=== PATIENT | female | born 1935 | race Caucasian/White ===

== ENCOUNTER 2016-09-01 12:25 | Inpatient (IN) | payer OTHER ==
--- NOTE | 2016-09-01 13:12 | ED EKG INTERP ---
EKG Interpretation - EKG Time of EKG reading by physician:: 12:48 EKG Read and Signed by:: Gerard Stone EKG Interpretation (*Must complete 3 of following elements*): Abnormal Rate: 132 Rhythm: Wide QRS tachycardia QRS: LVH (with QRS widening and repoarization abnormality) <Alicia Whaley - Last Filed: 09/01/16 13:10> - EKG Time of EKG reading by physician:: 13:15 EKG Read and Signed by:: Lary Garcia EKG Interpretation (*Must complete 3 of following elements*): Abnormal Rate: 132 QRS: LVH, other (Wide Complex Takchycardia) Prior EKG Comparison: unchanged from prior, changes noted <Lary Garcia - Last Filed: 09/01/16 15:09> Attestation - Scribe Verification/Attestation Scribe:: Alicia Whaley Acting as Scribe for:: Gerard Stone Scribe documention review:: This chart was documented by a scribe and accurately reflects the service the provider performed and the decisions made by the provider. <Alicia Whaley - Last Filed: 09/01/16 13:10> Physician Attestation
[2016-09-01] MEDS ORDERED: LASIX IV ONE (14:14)
[2016-09-01 14:15] LABS: MANUAL DIFF NEEDED? NO
[2016-09-01 14:23] LABS: BASO% 0.1 % (0.0-0.8); EOS# 0.04 X1000 (0.0-0.7); EOS% 0.4 % (0.0-10.0); HEMOGLOBIN 15.2 g/dL (12.0-16.0); IMM GRAN# 0.04 X1000 (0.0-0.04); IMM GRAN% 0.4 % (0.0-0.5); LYMPH# 1.94 X1000 (1.2-3.4); LYMPH% 17.6 % (20.5-51.1); MCHC 31.7 g/dL (33-37); MCV 94.7 FL (81-99); MONO# 1.02 X1000 (0.11-0.59); MONO% 9.3 % (1.7-9.3); MPV 9.3 FL (7.4-10.4); NEUT% 72.2 % (42.2-75.2); PLT 249 X1000 (130-400); RBC 5.07 XMIL (4.2-5.4)
[2016-09-01 14:38] LABS: INR 0.96; PROTIME 10.2 Seconds (9.2-11.7); PTT 24.7 Seconds (22.0-36.0)
[2016-09-01 14:52] LABS: ALBUMIN 3.9 g/dL (3.5-5.0); CALCIUM 9.6 mg/dL (8.8-10.2); MAGNESIUM 1.8 mg/dL (1.5-2.7); POTASSIUM 3.6 mmol/L (3.5-5.1); TOTAL BILIRUBIN 0.27 mg/dL (0.20-1.00)
--- NOTE | 2016-09-01 14:54 | Diag Imaging Result Document ---
PROCEDURE NAME: CHEST-2 VIEWS - 09/01/2016 SEATED AP AND LATERAL RADIOGRAPH OF THE CHEST: COMPARISON: 03/08/2016. FINDINGS: The lungs are hyperinflated, stable. There is stable blunting of the left costophrenic angle likely representing chronic pleural thickening given the stability. No new infiltrates are appreciated. Cardiac silhouette is stable. IMPRESSION: Stable COPD changes and stable blunting of the left costophrenic angle. No definite acute pathology, otherwise.
[2016-09-01] MEDS ORDERED: XOPENEX HFA INH PRN (14:57)
[2016-09-01] MEDS ORDERED: LEVAQUIN 750 MG/D5W 150 ML IV ONE (15:05)
[2016-09-01] MEDS ORDERED: SOLU-MEDROL IV ONE (15:06)
--- NOTE | 2016-09-01 15:15 | PROVIDER DOCUMENTATION ---
HPI-Respiratory General - General Chief Complaint: Shortness of Breath Stated Complaint: SINUS INFECTION,LOW OXYGEN Time Seen by Provider: 09/01/16 13:10 Source: patient Allergies/Adverse Reactions: Patient Allergies Allergy/AdvReac Type Severity Reaction Status Date / Time povidone-iodine Allergy Unknown Unknown Verified 04/19/14 07:56 [From Betadine] soap * [From Betadine] Allergy Unknown Unknown Verified 04/19/14 07:56 tiotropium bromide * Allergy Unknown Unknown Verified 04/19/14 07:56 [From Spiriva with HandiHaler] Home Medications: Home Medication List Medication Instructions Recorded Confirmed Last Taken Type Allopurinol [Zyloprim] 100 mg PO DAILY 09/27/13 10/28/14 10/28/14 History Diltiazem HCl [Tiazac] 300 mg PO DAILY 09/27/13 10/28/14 10/28/14 History Potassium Chloride E.r. [Klor-Con] 10 meq PO DAILY #30 tablet 10/04/13 10/28/14 10/28/14 Rx Fluticasone/Salmeterol [Advair 1 each IH BID 11/06/13 10/28/14 04/18/14 08:00 History 250-50 Diskus] Furosemide [Lasix] 1 - 2 tab PO DAILY 11/06/13 10/28/14 10/28/14 History Guaifenesin E.r. [Mucinex] 600 mg PO BID 04/19/14 10/28/14 10/28/14 History Magnesium 250 mg PO DAILY 04/19/14 10/28/14 10/28/14 History Roflumilast [Daliresp] 500 mcg PO DAILY 04/19/14 10/28/14 10/28/14 History Acetaminophen [Tylenol] 500 mg PO PRN PRN 10/28/14 10/28/14 Unknown History Montelukast [Singulair] 5 mg PO DAILY 10/28/14 10/28/14 10/28/14 History - History of Present Illness-Resp Nature of Presenting Problem: 81 y/o F w hx of COPD on home O2, presented with worsening SOB and deterioration of her resting oxygen saturation from 95 to below 90%. She admits to sweating, dizziness as well but denies any chest pain. She also denies fever , chills, nausea, vomiting or palpitation. She has a hx of cardiac disease but states that her heart is fine now. Quality of Pain: reports: none Onset/Duration: reports: 2 days ago Timing: reports: getting worse Context: reports: other Exposure: reports: unknown cause Cough Quality/Degree: reports: no cough Episode Frequency: occasional episodes Current Respiratory Medication Therapy: Initiated albuterol/atrovent inhale, Initiated steroid inhaler, Initiated prednisone Modifying Factors: improves with: albuterol inhaler, oxygen, rest, sitting upright Associated Symptoms: reports: dizziness, heart racing, sweaty Similar Symptoms Previously?: Yes Recently seen or treated by another doctor?: Yes Review of Systems - Adult - REVIEW OF SYSTEMS - ADULT Constitutional: reports: see HPI Eyes: reports: no symptoms reported Ears, Nose, Mouth & Throat: reports: sinus problem Respiratory: reports: dyspnea on exertion, shortness of breath Gastrointestinal: reports: no symptoms reported Genitourinary: reports: no symptoms reported Musculoskeletal: reports: no symptoms reported Integumentary: reports: no symptoms reported Neurological: reports: no symptoms reported Psychiatric: reports: no symptoms reported Endocrine: reports: no symptoms reported Hematologic/Lymphatic: reports: no symptoms reported Allergic/Immunologic: reports: no symptoms reported Past History - Adult - PAST MEDICAL HISTORY-ADULT Major Childhood Illnesses: reports: denies history Cardiovascular: reports: CHF, HTN Respiratory: reports: asthma, COPD, pneumonia (recurrent) Gastrointestinal: reports: hemorrhoids, polyps Obstetrical/Gynecological: reports: denies history Genitourinary: reports: denies history Musculoskeletal: reports: denies history Neurological: reports: denies history Endocrine/Immune: reports: denies history Other Conditions: reports: denies history - PRIOR SURGERIES/PROCEDURES Surgical/Procedure History: reports: reviewed, not pertinent - PRIOR HOSPITALIZATIONS Prior Hospitalizations: reports: for similar symptoms - IMMUNIZATION STATUS Childhood Immunizations: See Nurse Assessment Flu Vaccine: See Nurse Assessment - FAMILY HISTORY Family History: reviewed, not pertinent Physical Exam-General - CONSTITUTIONAL General Appearance: severe distress, thin - EYES Eyes: PERRL/EOMI - HEAD, EARS, NOSE, MOUTH & THROAT HENMT: normocephalic/atraumatic - NECK Neck: supple - RESPIRATORY Respiratory: respiratory distress, decreased breath sounds, wheezing - CARDIOVASCULAR Cardiovascular: tachycardia - CHEST (BREASTS) Chest/Breast: no tenderness, other (pigeon chest) - GASTROINTESTINAL (ABDOMEN) Abdominal Exam: non tender, soft - GENITOURINARY Female Genitalia/Pelvic Exam: deferred Rectal Exam: deferred - LYMPHATIC Lymphatic: no adenopathy - MUSCULOSKELETAL Extremity: normal range of motion, pedal edema - SKIN Integumentary: pallor - NEUROLOGIC Neurologic: grossly normal - PSYCHIATRIC Psych/Mental Status: normal mood/affect, oriented x 3 Progress - PLAN OF CARE/RESULTS Progress/Plan/Lab Results: Laboratory Tests 09/01/16 09/01/16 09/01/16 13:41 13:41 13:41 WBC 11.01 H RBC 5.07 Hgb 15.2 Hct 48.0 H MCV 94.7 MCH 30.0 MCHC 31.7 L RDW Std Deviation 14.6 H Plt Count 249 MPV 9.3 Immature Gran % (Auto) 0.4 Neut % (Auto) 72.2 Lymph % (Auto) 17.6 L [place] % (Auto) 9.3 Eos % (Auto) 0.4 Baso % (Auto) 0.1 Immature Gran # (Auto) 0.04 Neut # (Auto) 7.96 H Lymph # (Auto) 1.94 [place] # (Auto) 1.02 H Eos # (Auto) 0.04 Baso # (Auto) 0.01 PT INR PTT (Actin FS) D-Dimer 1.21 H Sodium 137 Potassium 3.6 Chloride 96 L Carbon Dioxide 32 Anion Gap 9 BUN 21 Creatinine 0.9 Estimated GFR/1.73 m2 60 BUN/Creatinine Ratio 23 Glucose 85 Calculated Osmolality 276 Calcium 9.6 Magnesium 1.8 Total Bilirubin 0.27 AST 22 ALT 21 Alkaline Phosphatase 61 Creatine Kinase 34 Troponin T [id number]-[id number] Pept Total Protein 7.0 Albumin 3.9 Globulin 3.1 Albumin/Globulin Ratio 1.3 09/01/16 09/01/16 09/01/16 13:41 13:41 13:41 WBC RBC Hgb Hct MCV MCH MCHC RDW Std Deviation Plt Count MPV Immature Gran % (Auto) Neut % (Auto) Lymph % (Auto) [place] % (Auto) Eos % (Auto) Baso % (Auto) Immature Gran # (Auto) Neut # (Auto) Lymph # (Auto) [place] # (Auto) Eos # (Auto) Baso # (Auto) PT 10.2 INR 0.96 PTT (Actin FS) 24.7 D-Dimer Sodium Potassium Chloride Carbon Dioxide Anion Gap BUN Creatinine Estimated GFR/1.73 m2 BUN/Creatinine Ratio Glucose Calculated Osmolality Calcium Magnesium Total Bilirubin AST ALT Alkaline Phosphatase Creatine Kinase Troponin T 0.012 [id number] Pept 1720 H Total Protein Albumin Globulin Albumin/Globulin Ratio - REASSESSMENT Reassessment #1 Time Reassessed: 15:21 Status: unchanged - CONSULTS/PCP/HOSPITALIST Notification #1 *Consult/PCP/Hospitalist*: Dr. Phillips Time Discussed: :22 Departure - Departure Time of Disposition Order: 15:20 DIAGNOSIS: Acute exacerbation of chronic obstructive pulmonary disease (COPD), Acute systolic CHF (congestive heart failure), NYHA class 4, Wide-complex tachycardia Disposition: ADMITTED INPATIENT 09 Condition: Poor Referrals: Eliazar Barbosa MD [Primary Care Provider] -
[2016-09-01 15:23] LABS: ALLEN TEST YES; BLOOD TYPE ARTERIAL; DRAW SITE R RADIAL; METHB 1.4 % (0.0-1.5); MODALITY VENTIMASK; O2(CT) 19.2 mL/dL (15.0-23.0); PCO2(98.6) 46 mmHg (35-45); PO2(98.6) 64 mmHg (60-100); SAMPLE BLOOD; THB 14.8 g/dL (11.5-17.4); pH(98.6) 7.44 (7.35-7.45)
[2016-09-01] MEDS ORDERED: TYLENOL PO PRN (18:43)
[2016-09-01] MEDS ORDERED: ZOFRAN IV PRN (18:43)
[2016-09-01] MEDS ORDERED: NORCO-7.5 PO PRN (18:43)
[2016-09-01 19:18] LABS: URINE CULTURE NEEDED? NO; URINE MICRO REVIEW NEEDED? NO; URINE SOURCE CLEAN CATCH
[2016-09-01 19:20] LABS: BILIRUBIN URINE NEGATIVE (NEGATIVE); BLOOD URINE NEGATIVE (NEGATIVE); COLOR STRAW; GLUCOSE URINE NEGATIVE (NEGATIVE); LEUKOCYTES URINE NEGATIVE (NEGATIVE); NITRITE URINE NEGATIVE (NEGATIVE); PROTEIN URINE NEGATIVE (NEGATIVE); SP GRAVITY URINE 1.021; TURBIDITY URINE CLEAR (CLEAR); UROBILINOGEN URINE NORMAL (NORMAL)
[2016-09-01 19:22] LABS: UR EPITHELIAL CELLS <10 /HPF (<10); URINE BACTERIA NEGATIVE /HPF; URINE RBC <10 /HPF (<10); URINE WBC <10 /HPF (<10)
[2016-09-01] MEDS: ATROVENT NEB INH SCH ×2 (19:25→23:03)
[2016-09-01] MEDS: PULMICORT INH SCH (19:25)
[2016-09-01] MEDS: MUCOMYST 20% INH SCH (19:26)
[2016-09-01] MEDS: XOPENEX NEB INH SCH ×2 (19:26→23:04)
[2016-09-01] MEDS: MUCINEX PO SCH (20:32)
[2016-09-01] MEDS: ROCEPHIN 1 GM/NS 50 ML IV SCH (20:32)
--- NOTE | 2016-09-01 20:50 | HISTORY AND PHYSICAL ---
PRIMARY CARE PROVIDER: Dr. Eliazar Barbosa PRIMARY MARKETING REPRESENTATIVE: Mina Grier MD PRIMARY SYNTHETIC STAPLE EXTRUDER: Gumaro Chapman MD PRIMARY GLASS TECHNOLOGIST: PRIMARY [employer] CONSULTANT: Jagdeep Bender MD CHIEF COMPLAINT: Shortness of breath. HISTORY OF PRESENT ILLNESS: Ms. Louise Hutson is an 81-year-old, female with a past medical history of severe COPD, systolic congestive heart failure IgG deficiency who apparently she states over the last few weeks starting at the beginning of August, has had respiratory issues in which she was placed on azithromycin twice, doxycycline and also took prednisone, but the symptoms continued. She coughed a productive clear thick phlegm. She has a runny nose, sore throat, and she has got a anterior cervical lymphadenopathy that developed over the last 24 hours which is tender to palpation. She is on home oxygen. She states that she usually does 2 L during the day and 3 L at night, but now requires 3 L in the day and at night and has had over the last 24 hours drops in her O2 saturation. Also found on EKG with a heart rate of 132, a wide complex tachycardia, likely a left bundle branch block, and the QTc was 545. She was treated with Levaquin for COPD exacerbation, but will change to Rocephin given the prolonged QTc. An echocardiogram that had been performed 02/06/2015 revealed at that time that she had an ejection fraction of 25-30% and upon auscultation she has crackles with expiratory wheezes throughout. She received 60 of IV Lasix. She also takes Lasix at home. Chest x-ray reports stable COPD changes, stable blunting of the left costophrenic angle, but no new infiltrates. We will admit her to [facility] for close monitoring as she has a somewhat of a tachycardic rate. We will continue her on her oral Cardizem daily, consult Cardiology. Given her COPD, we will consult Pulmonology, for her IgG deficiency we will consult Dr. Bender. PAST MEDICAL HISTORY: Severe COPD. IgG deficiency requiring IVIG replacement, hypertension, polycythemia, dyslipidemia, osteoarthritis, lumbar radiculopathy, arthritis, systolic congestive heart failure. She says that she has had tachycardic arrhythmias in the past. SURGICAL HISTORY: She has had right wrist surgery secondary to fracture, breast biopsy, tonsillectomy and a stem cell injection in 2016. SOCIAL HISTORY: She says she quit several years ago smoking. She has quit drinking for several months now, but she did drink bourbon and water every night before bed. She denies illicit drug use. ALLERGIES: Iodine soap and tiotropium bromide. HOME MEDICATIONS: Diltiazem 300 mg p.o. daily, allopurinol 100 mg p.o. daily, Advair 250-50 inhaled twice daily, Lasix 20-40 mg p.o. daily, Daliresp 500 mcg p.o. daily, magnesium 250 mg p.o. daily, Mucinex 600 mg p.o. twice daily, Tylenol 500 mg p.r.n., Singulair 5 mg p.o. daily, potassium chloride 10 mEq p.o. daily. REVIEW OF SYSTEMS: 14 point review of systems were complete and all were negative except for those mentioned in above HPI. LABORATORY DATA: White blood cells 11,000, hemoglobin 15, hematocrit 48, platelet count 240,000. INR 0.96, D-dimer 1.21. ABGs on 35% FiO2 Venturi mask, pH 7.44, pCO2 46, PO2 64, bicarb 29, base excess 6, oxyhemoglobin 92%. Lactate 0.6, sodium 137, potassium 3.6, BUN 21, creatinine 0.9, glucose 85, calcium 9.6, magnesium 1.8, total bilirubin 0.27, AST 22, ALT 21, CK 34, troponin 0.012, proBNP 1720. Total protein 7, albumin 3.9. IMAGING: Chest x-ray: Stable COPD changes and stable blunting of the left costophrenic angle. No definite acute pathology otherwise. EKG: Wide QRS tachycardia, likely with left bundle branch block. The EKG was viewed by Dr. Treviño. The heart rate was 132 and the QTc was 545. PHYSICAL EXAMINATION: VITAL SIGNS: Temperature 98.2 degrees, heart rate 119, respiratory rate 25, blood pressure 154/92, O2 saturation 94% on 35% Venturi mask. HEIGHT AND WEIGHT: 5 feet 5 inches tall, 135 pounds. BMI 22.5. GENERAL: Ms. Hutson is an ill appearing 81-year-old female. She is in no acute distress. Able to answer questions appropriately, but is short of breath when speaking. HEENT: Atraumatic, normocephalic. Pupils equal, round, reactive to light. Extraocular movements are intact. Mucous membranes are moist. NECK: No JVD or carotid bruits. She does have anterior bilateral cervical lymphadenopathy that are tender to palpation and hard to palpation, enlarged, about the size of golf balls, nearly. CARDIOVASCULAR: S1, S2. Tachycardic rate and rhythm. No rubs, gallops, murmurs. PULMONARY: Expiratory wheezes and crackles throughout on 35% Venturi mask with some shortness of breath with speech and the activity. No accessory muscle use, but work of breathing. GI: Soft, nontender, nondistended. Positive bowel sounds x4. EXTREMITIES: No edema noted. +2 dorsalis and radial pulses. NEUROLOGIC: Alert and oriented x4. Moves all extremities equally. SKIN: Warm, dry, intact. ASSESSMENT AND PLAN: 1. Acute on chronic systolic congestive heart failure with wide complex tachycardia which is likely left bundle-branch block. Electrocardiogram was viewed by Dr. Treviño who has been consulted. Cardiac enzymes were negative at this time. We will do routine cardiac enzymes. She does not complain of chest pain. We will reorder a more current echocardiogram. She had one in 2014 which showed an AF at 25-30% and global hypokinesis for which she takes Lasix at home. She has received a 1 time dose of 60 of Lasix and we will continue 40 IV twice daily starting tomorrow morning. Given the heart rate, she will be resumed on her home Cardizem and diltiazem dosing. Electrocardiogram showed a wide complex tachycardia with a rate of 132 in the QTc was 545, so be very careful about medications that can prolong the patient's QTc. 2. Chronic obstructive pulmonary disease exacerbation. She does have prolonged expiratory phase and some wheezing throughout. This could be pulmonary edema, but we will go ahead and do intravenous steroids and held Xopenex and Atrovent given her fast heart rate. Mucomyst and budesonide, aggressive pulmonary toilet and Rocephin for IV antibiotic coverage. She does have some leukocytosis which is likely inflammatory. 3. Complains of sore throat. She also anterior cervical two lymph nodes that are swollen, lymphadenopathy that had swollen over the last 24 hours that are tender to palpation. She has an IgG deficiency that Dr. Bender follows her for. If these do not improve with IV antibiotics, may need to scan. Dr. Bender has been reconsulted. 4. Hypertension. Continue home medications. 5. Dyslipidemia. 6. Arthritis. 7. Deep venous thrombosis prophylaxis, Lovenox. 8. Gastrointestinal prophylaxis. Proton pump inhibitor. Dictated by VIVIANE Trinidad for Cullen Hidalgo MD
[2016-09-01] MEDS: SOLU-MEDROL IV SCH (23:22)
[2016-09-02] MEDS: ATROVENT NEB INH SCH ×6 (03:31→22:41)
[2016-09-02] MEDS: XOPENEX NEB INH SCH ×6 (03:31→22:41)
[2016-09-02 05:18] LABS: ALLEN TEST YES; BE 4.7 mmoll (-3.0-3.0); BLOOD TYPE ARTERIAL; DRAW SITE R RADIAL; METHB 0.4 % (0.0-1.5); O2(CT) 20.2 mL/dL (15.0-23.0); PCO2(98.6) 45 mmHg (35-45); PO2(98.6) 62 mmHg (60-100); SAMPLE BLOOD; SAO2 97.4 % (95.0-100.0); THB 15.4 g/dL (11.5-17.4); pH(98.6) 7.43 (7.35-7.45)
[2016-09-02 05:21] LABS: MODALITY CANNULA
--- NOTE | 2016-09-02 05:47 | EKG Report ---
Test Performed on : 09/02/2016 05:21:16 AM Test Reason : Heart Failure Admission Blood Pressure : / mmHG Vent. Rate : 104 BPM Atrial Rate : 104 BPM P-R Int : 158 ms QRS Dur : 136 ms QT Int : 400 ms P-R-T Axes : 078 -64 094 degrees QTc Int : 526 ms Sinus tachycardia. Left axis deviation Left bundle branch block Abnormal ECG When compared with ECG of 01-SEP-2016 12:48, (Unconfirmed) Sinus rhythm. has replaced Wide QRS tachycardia. Confirmed by Bryan Fernandez MD ([id number]) on 09/04/2016 8:59:41 PM
[2016-09-02] MEDS: PROTONIX PO SCH (06:18)
[2016-09-02] MEDS: SOLU-MEDROL IV SCH ×2 (06:18→17:16)
[2016-09-02] MEDS: MUCOMYST 20% INH SCH ×2 (07:50→19:30)
[2016-09-02] MEDS: PULMICORT INH SCH (07:50)
[2016-09-02 08:16] LABS: HEMATOCRIT 50.7 % (37.0-47.0); HEMOGLOBIN 16.2 g/dL (12.0-16.0); LYMPH# 0.52 X1000 (1.2-3.4); LYMPH% 9.4 % (20.5-51.1); MANUAL DIFF NEEDED? YES; MCH 29.6 PG (27-31); MCV 92.7 FL (81-99); MONO# 0.07 X1000 (0.11-0.59); MONO% 1.3 % (1.7-9.3); NEUT% 89.3 % (42.2-75.2); PLT 254 X1000 (130-400); RBC 5.47 XMIL (4.2-5.4)
[2016-09-02 08:29] LABS: ALBUMIN 3.9 g/dL (3.5-5.0); CALCIUM 9.4 mg/dL (8.8-10.2); POTASSIUM 3.6 mmol/L (3.5-5.1); TOTAL BILIRUBIN 0.36 mg/dL (0.20-1.00); TOTAL PROTEIN 7.6 g/dL (6.3-8.3)
--- NOTE | 2016-09-02 09:04 | Diag Imaging Result Document ---
PROCEDURE NAME: ANGIOGRAM/PULMONARY ARTERIES - 09/01/2016 CT ANGIOGRAM OF THE PULMONARY ARTERIES WITH CONTRAST: TECHNIQUE: The exam was performed with intravenous contrast. Axial and reformatted coronal images are obtained. A dose reduction protocol was used. COMPARISON: CT thorax of 08/19/2013. FINDINGS: There are no filling defects identified in the pulmonary arteries. There is no indication of aortic dissection. There are some emphysematous changes. There are a couple of left lower lobe calcified granulomas from old granulomatous disease. There are mild infiltrates or atelectasis at the bilateral lung bases. There is no dense consolidation, pleural effusion, or pneumothorax identified. There are nonspecific small mediastinal lymph nodes. There are no substantially enlarged mediastinal or hilar lymph nodes identified. There is a 3 cm cyst noted at the visualized upper pole right kidney similar to the previous exam. IMPRESSION: 1. No evidence of pulmonary embolism. 2. Mild infiltrates or atelectasis at the bilateral lung bases. No consolidation. Emphysema. The on-call radiologist provided preliminary results at 7:06 p.m. on 09/01/2016.
[2016-09-02] MEDS: MAG-OX PO SCH (09:06)
[2016-09-02] MEDS: LOVENOX SUBQ SCH (09:06)
[2016-09-02] MEDS: ZYLOPRIM PO SCH (09:06)
[2016-09-02] MEDS: SINGULAIR PO SCH (09:06)
[2016-09-02] MEDS: LASIX IV SCH ×2 (09:06→20:01)
[2016-09-02] MEDS: MUCINEX PO SCH ×2 (09:06→20:01)
[2016-09-02] MEDS: KLOR-CON PO SCH (09:06)
[2016-09-02] MEDS: CARDIZEM CD PO SCH (09:06)
[2016-09-02 09:38] LABS: BANDS 4 % (0-1); LYMPHS 4 % (21-51)
[2016-09-02 09:39] LABS: STOMATOCYTES OCCASIONAL
--- NOTE | 2016-09-02 09:47 | Diag Imaging Result Document ---
PROCEDURE NAME: NECK W/CONTRAST - 09/01/2016 CT NECK WITH CONTRAST: TECHNIQUE: Exam performed with intravenous contrast. A dose reduction protocol was used. No comparison exam. FINDINGS: There are no abnormally enlarged or necrotic appearing lymph nodes identified. There is no mass lesion identified. There are artifacts from teeth fillings which limit detail of the oropharynx. There is no inflammatory process or abscess identified. IMPRESSION: No visible acute process. No evidence of cervical adenopathy. The on-call radiologist provided preliminary results at 7:06 p.m. on 09/01/2016. MTDD
--- NOTE | 2016-09-02 10:48 | CONSULTATION ---
DATE OF CONSULTATION: 09/02/2016 REQUESTING PHYSICIAN: Hospitalist Service REASON FOR CONSULTATION: The patient has dyspnea, tachycardia, "wide complex tachycardia." HISTORY OF PRESENT ILLNESS: Ms. Hutson is an unfortunate 81-year-old woman who is known to me. This patient presented to the emergency room yesterday because of several days of progressive increasing dyspnea. She has advanced COPD, and she has to use oxygen at home. Over the course of the past few days, she had noticed that she was really getting worsening symptoms. She went to see her primary doctor, and they gave her some antibiotics. Yesterday she went to the Urgent Care, and they advised her to come in the hospital for further care because she was really having labored breathing, and she appeared to have exacerbation of her COPD along with tachycardia with an abnormal sort of ECG. Upon presentation, the patient was found tachycardic. They gave her oxygen, breathing treatments and steroids, and she has been admitted to [facility] for further care. She denies having any chest pain. Denies having any swelling. Denies any syncope. Denies claudication. PAST MEDICAL HISTORY: Positive for abnormal EKG for a long time. She has had left bundle branch block on her EKG for years. We have followed her, and we have documented the presence of a chronic systolic dysfunction, cardiomyopathy type of failure which has been relatively stable. She has had atypical chest pains in the past. She has had previous EKGs and myocardial perfusion studies that have shown no evidence of ischemia with a fixed anteroseptal defect. She has had documented bouts of nonsustained ventricular tachycardia on a 30-day ACD monitor in the past. She has history of hypertension, history of dyslipidemia with coronary calcifications. She has had atypical chest pains. She has advanced COPD. 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 She has osteoarthritis, gastric reflux, recurrent bronchitis and history of pneumonia in the past. PAST SURGICAL HISTORY: Positive for cataract surgery, tonsillectomy and breast biopsy. SOCIAL HISTORY: She is . She has one child. She has not been smoking. She has some allergies to dust. FAMILY HISTORY: Really noncontributory for the purposes of this admission. HOME MEDICATIONS: Listed at this time included spironolactone 25 daily, losartan 50 daily, albuterol inhaler daily, Prilosec daily 40 mg, Celebrex 50 daily, Daliresp 500 mcg daily, magnesium 250 daily, guaifenesin 600 twice a day, furosemide 1 to 2 tablets daily, diltiazem 300 daily, allopurinol and acetaminophen. ALLERGIES: Betadine soap and Spiriva. REVIEW OF SYSTEMS: She really is chronically short of breath. The last time I saw her was in 11/2015. She says that over the course of the past few months, her functional capacity has gradually declined and she cannot keep up with her house chores as she used to. No other positives on the multiple system review. PHYSICAL EXAMINATION: Today, blood pressure is 148/112, temperature 97.5, pulse 113, respirations 22. Awake, alert, chronically ill. Presently taking a breathing treatment. HEENT: No definite lesions in the neck. No definite jugular venous distention. Chest shows diffusely diminished breath sounds. Decreased excursion in the bases. Bilateral rhonchi, end expiratory wheezes, some crepitans. Heart sounds are regular, rhythmic, tachycardic. Abdomen is nontender. Extremities showed very good dorsalis pedis pulses. There is no peripheral edema. Skin is pink and warm. No lesions or rashes are noted. Neurologic: She moves all 4 extremities and follows commands. DIAGNOSTIC DATA: Blood work shows white count 5550, hemoglobin 16.2, hematocrit 50.7, platelet count is 254,000. Sodium is 139, potassium 3.6, BUN is 25, creatinine 1.2. ProBNP initially was 1720, subsequently 3944. IMPRESSION: 1. The patient is presenting with increasing respiratory distress, likely secondary to exacerbation of intermediate accountant chronic obstructive pulmonary disease. 2. Abnormal EKG with a left bundle branch block and sinus tachycardia. 3. History of cardiomyopathy, chronic systolic dysfunction of the left ventricle. Stable heart failure. Functional class 2 to 3. 4. History of hypertension. 5. History of hyperlipidemia. RECOMMENDATIONS: At this point in time, I would suggest to treat the COPD which appears to be the reason for her present admission. Mild diuresis could be added to her therapy to maintain her in a euvolemic state; however, the church is to really open up her airways as best as we can. I would strongly recommend that we get a Pulmonary consultation to get the input of the supervisory geographer who knows her best. Further intervention will depend on her clinical course. Thank you again for asking us to participate in her evaluation. We will monitoring her hospital course and making adjustments as needed. At this point in time, I do not suspect that we are dealing with a coronary syndrome or anything along those lines. Best regards.
--- NOTE | 2016-09-02 11:26 | PROGRESS NOTE ---
DATE: 09/02/2016 SUBJECTIVE: Patient is feeling better. Less shortness of breath according to her. OBJECTIVE: Vital Signs: Temperature 98.2 degrees, heart rate 113, respiratory rate 28, blood pressure 141/62, O2 saturation 92% on 3 L nasal cannula. General Examination: This is an 81-year- old, female lying in bed, in no acute distress. HEENT: Head is normocephalic and atraumatic. Anicteric sclerae and pale conjunctivae. Mucous membranes moist. Neck: Supple. No JVD noted. No carotid bruits. Anterior bilateral cervical lymphadenopathy noted. Mild tender to palpation. Large with size about 4-5 cm. Cardiovascular Examination: S1 and S2 heard. Tachycardic. No murmurs, gallops, or rubs. Regular rate and rhythm. Respiratory Examination: Decreased breath sounds. Diffuse expiatory wheezing and crackles throughout both pulmonary holden. The patient is not using accessory muscles or having work of breathing today. GI: Abdomen is soft, nontender to palpation. Bowel sounds present. No organomegaly. Extremities: No clubbing, cyanosis, or edema. Peripheral pulses present in both legs. Neurological Examination: Patient alert and oriented x3. Able to move 4 extremities. Cranial nerves 2-12 grossly normal. Laboratory Data: White cell count 5.5, hemoglobin 16.2, hematocrit 50.7, and platelets 254,000. ABG shows pH 7.33, pCO2 45, PO2 62. BMP remarkable for creatinine 1.2. ASSESSMENT AND PLAN: 1. Acute on chronic systolic congestive heart failure. The patient reports feeling better. Patient has been started on Lasix 40 mg intravenous every 12 hours. The patient is doing fine. Also, he was noted on the electrocardiogram from yesterday, sort of wide complex tachycardia which was considered likely a left bundle branch block. At this point, we are going to continue with the same management. Last ejection fraction for this patient was one year ago and the ejection fraction was 25-30%. We will see what cardiology has to say. At this point, as mentioned before, we will continue with the same management. 2. Chronic obstructive pulmonary disease. Patient had signs of chronic obstructive pulmonary disease exacerbation. We are going to continue with Xopenex and Atrovent. 3. Cervical lymphadenopathy. Because of suspicion for possible lymphoma because he has a family history of brothers who from this condition, we ordered a CT of the neck which basically did not show any significant adenopathy. Also to check if there is mediastinal adenopathy and also for suspicion for pulmonary embolism, CT angiogram of the chest showed no pulmonary embolism and no lymphadenopathy noted. 4. Hypertension. We will continue with home medications. 5. Hyperlipidemia. We will continue with the same management.
--- NOTE | 2016-09-02 15:34 | ECHO REPORT ---
ORDER DATE: 09/02/2016 ECHOCARDIOGRAPHIC MEASUREMENTS: 1. Interventricular septum 1.4. Left ventricular posterior wall 1.2. Diastolic diameter 3.8. Left atrium 4. Aorta 3. 2. Aortic valve leaflets are trileaflet. Mitral valve was normal. Tricuspid valve was normal. Pulmonic valve not well visualized. 3. Peak velocity across aortic valve less than 2 m/sec. There is no aortic stenosis or regurgitation. 4. Normal left ventricular cavity size. Mild left ventricular hypertrophy. Estimated ejection fraction of 30-35%. There is global hypokinesis. 5. There is mild mitral regurgitation. Mild tricuspid regurgitation. Peak velocity across the tricuspid valve was less than 2 m/sec. 6. Technically suboptimal study. Poor apical windows. 7. There is no pericardial effusion or obvious intracardiac mass or thrombus seen. Anterior echo- free space suggestive of pericardial fat pad was noted.
[2016-09-02] MEDS: ROCEPHIN 1 GM/NS 50 ML IV SCH ×2 (17:16→20:01)
--- NOTE | 2016-09-02 20:21 | CONSULTATION ---
DATE OF CONSULTATION: 09/02/2016 REASON FOR CONSULTATION: This patient is known to us. 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 She last received IVIG in our clinic on August 14. IgG level at that time was 818. HISTORY OF PRESENT ILLNESS: This patient is known to us with common variable immune deficiency. She receives IVIG every 4 weeks, last received on August 14. Her IVIG level at that time was 818. She was admitted with acute on chronic systolic heart failure along with wide complex tachycardia. She was complaining of a productive cough with some dyspnea requiring more oxygen at home. She typically is on 2 L at home and now she is up to 3 L at night. She is also tachycardic. A chest x-ray performed showed stable COPD changes and stable blunting of the left costophrenic angle, no acute processes. CTA of the chest showed no evidence of pulmonary embolism. It did show mild infiltrate or atelectasis at the bilateral lung bases along with emphysema. There is also some neck lymphadenopathy so a neck CT was performed that showed no visual acute process. REVIEW OF SYSTEMS: Negative unless indicated in HPI. ALLERGIES: Iodine. PAST MEDICAL HISTORY: Variable immune deficiency, COPD, hypertension, systolic congestive heart failure, osteoarthritis, polycythemia. SOCIAL/FAMILY HISTORY: Patient has a history of smoking, she quit several years ago. She denies any illicit drug use or alcohol use. HOME MEDICATIONS: Diltiazem, allopurinol, Advair, Singulair, Lasix, magnesium, Mucinex and potassium. DIAGNOSTIC DATA: Chest x-ray and CTA of the chest as above along with neck CT as above. WBC 5.55, hemoglobin 16.2, hematocrit 50.7, platelets 254,000. Sodium 139, potassium 3.6, BUN 25, creatinine 1.9. proBNP 3944. PHYSICAL EXAMINATION: Vital signs: Stable. General: This is a female in no acute distress. HEENT: Head is normocephalic, atraumatic. Pupils equal, round, symmetric. Mucous membranes are moist. Neck: There are 3 cm cervical tender nodes bilateral. Pulmonary: Coarse crackles in the bases bilateral. Normal respiratory effort. Cardiovascular: S1-S2 audible to auscultation with no heaves or thrills. Gastrointestinal: Soft, nontender. Positive bowel sounds in all 4 quadrants. Neurologic: Alert and oriented x3. Skin: Warm, dry, intact. ASSESSMENT AND PLAN: 1. 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 Patient on IVIG last on 08/14/2016. Her last IgG was 118. 2. Lymphadenopathy infectious, decreased by 50% per the patient since yesterday with antibiotics. Will continue current management and monitor. 3. Wide complex tachycardia. Levaquin has been discontinued. Dr. Treviño is following. 4. Deep vein thrombosis prophylaxis. 5. Secondary polycythemia. Dictated by VIVIANE Whalen for Jagdeep Bender MD
[2016-09-03] MEDS: XOPENEX NEB INH SCH ×5 (04:55→19:50)
[2016-09-03] MEDS: ATROVENT NEB INH SCH ×5 (04:55→19:50)
[2016-09-03] MEDS: SOLU-MEDROL IV SCH ×2 (05:36→18:20)
[2016-09-03 05:40] LABS: BASO% 0.1 % (0.0-0.8); HEMATOCRIT 44.1 % (37.0-47.0); HEMOGLOBIN 14.4 g/dL (12.0-16.0); IMM GRAN# 0.04 X1000 (0.0-0.04); IMM GRAN% 0.3 % (0.0-0.5); LYMPH# 0.79 X1000 (1.2-3.4); LYMPH% 5.6 % (20.5-51.1); MANUAL DIFF NEEDED? YES; MCH 30.1 PG (27-31); MCHC 32.7 g/dL (33-37); MCV 92.1 FL (81-99); MONO# 0.58 X1000 (0.11-0.59); MONO% 4.1 % (1.7-9.3); MPV 9.4 FL (7.4-10.4); NEUT% 89.9 % (42.2-75.2); PLT 257 X1000 (130-400); RBC 4.79 XMIL (4.2-5.4)
[2016-09-03 05:50] LABS: CALCIUM 8.9 mg/dL (8.8-10.2); POTASSIUM 3.8 mmol/L (3.5-5.1)
[2016-09-03] MEDS: PROTONIX PO SCH (06:11)
[2016-09-03 06:53] LABS: BANDS 2 % (0-1); LYMPHS 9 % (21-51); MONO 2 % (1-9)
[2016-09-03] MEDS: MUCOMYST 20% INH SCH ×2 (07:20→19:50)
--- NOTE | 2016-09-03 07:34 | CONSULTATION ---
DATE OF CONSULTATION: 09/02/2016 REASON FOR CONSULTATION: COPD with respiratory failure. HISTORY OF PRESENT ILLNESS: Ms. Hutson is an 81-year-old white female, with severe COPD, recurrent infections due to common variable immunodeficiency on IVIG replacement, cor pulmonale, history of polycythemia who has had increasing difficulty with her pulmonary status over the last 2-3 weeks. The patient had been on prednisone for approximately 20 days along with a course of azithromycin and doxycycline. Patient's shortness of breath has persisted and she has developed a dry mouth and some swelling underneath her mandibles for the last several days. The swelling appears to have been decreased by her report. She was evaluated in the emergency room for increasing shortness of breath. Her oxygen requirements have increased over her baseline. She underwent a CT scan of the thorax with pulmonary angiography which revealed mild infiltrates/atelectasis in the lung bases along with significant emphysema. She underwent a CT scan of the neck which does reveal prominent submandibular glands. She reports she has had an extremely dry mouth for the last 48-72 hours. PAST MEDICAL HISTORY: 1. Severe COPD with prior tobacco use. 2. Common variable immunodeficiency on IVIG replacement therapy by Dr. Bender. 3. Left ventricular dysfunction with an ejection fraction of 30-35% on a recent echocardiogram. 4. Lumbar radiculopathy. 5. Osteoarthritis. 6. Hypertension. 7. Dyslipidemia. SOCIAL HISTORY: Nonsmoker for several years. No recent alcohol use. FAMILY HISTORY: Noncontributory to current presentation. REVIEW OF SYSTEMS: Notable for persistent/progressive shortness of breath, cough productive of purulent sputum. PHYSICAL EXAMINATION: General: Reveals an elderly white female in no distress. Vital signs: Blood pressure 138/65, heart rate 124, respiration rate 32, oxygen saturation 92% on 4 L per nasal cannula. HEENT: Pupils are equal and reactive. Oropharynx is clear. Neck: Supple. Neck reveals fullness and mild tenderness below the mandibles bilaterally. Chest: Reveals scattered wheezing and rhonchi bilaterally. Cardiac Exam: Increased rate. Regular rhythm. Abdomen: Soft, no hepatosplenomegaly. Extremities: Without edema. LABORATORIES: White blood count on admission 45190, hemoglobin 15.2, platelet count 249,000. Chemistry sodium 139, potassium 3.6, chloride 93, BUN 25, creatinine 1.2. Arterial blood gas on 4 L per nasal cannula pH 7.43, pCO2 45, PO2 of 62. IMPRESSION: An 83-year-old with severe chronic obstructive pulmonary disease, acute on chronic hypoxemic respiratory failure, chronic obstructive pulmonary disease exacerbation, immunoglobulin deficiency, and inflammation/swelling of the submandibular glands bilaterally. She also has a dry mouth. RECOMMENDATION: 1. Continue antibiotics and steroids as you are doing. 2. Check IgG levels. 3. Will check a respiratory infection panel to see if we can isolate the pathogen causing her current enlargement of her submandibular gland. 4. Additional recommendations pending hospital course.
--- NOTE | 2016-09-03 08:12 | PROGRESS NOTE ---
DATE: 09/03/2016 CHIEF COMPLAINT: Shortness of breath. SUBJECTIVE: Ms. Hutson is feeling generally better as far as her breathing. She denies having any chest pain. Telemetry shows sinus rhythm with sinus tachycardia. She does have a left bundle branch block type of complex that has not changed. OBJECTIVE: Vital signs: Her blood pressure is 128/62, temperature 97.9, pulse 104, respirations 24. General: She is awake, alert. She is getting a breathing treatment. HEENT: Unremarkable. Chest: Bilateral rhonchi, end-expiratory wheezes. Her chest is hyperresonant to percussion. She does not have jugular venous distention. Skin: She has no rashes. Cardiac: Heart sounds are regular and rhythmic, tachycardic, distant. Abdomen: Nontender. Extremities: No edema. Neurologic: Follows commands. Moves all extremities. Awake, alert and oriented x3. LABORATORY DATA: White count 14,090, hemoglobin 14.4. Sodium 139, potassium 3.8, BUN 46, creatinine 1.3. Of note, the patient is taking cortisone in the form of methylprednisolone 40 mg every 12 hours. Reports from tests done yesterday include an echocardiogram that shows ejection fraction in the order of 30-35%, global hypokinesis. Her pulmonary arteriogram from 09/01/2016 showed no evidence of pulmonary embolism with mild infiltrates or atelectasis at bilateral lung bases. Her other tests pertaining to the heart include a pro BNP that was elevated at 30,933. All of her troponin levels, total of 3, were negative. IMPRESSION: 1. Patient who presented with increasing dyspnea. This is probably secondary to a combination of chronic systolic congestive heart failure with abnormal 12-lead EKG. This is probably mostly a dilated cardiomyopathy type of finding which has been stable complicated at this time by exacerbation of COPD. 2. History of hypertension. 3. History of hyperlipidemia. RECOMMENDATIONS: At this point in time, I would continue present course of therapy. The patient in general appears to be doing better. We may want to cut down some on the diuretics. We will observe her progress.
[2016-09-03] MEDS: LASIX IV SCH (09:28)
[2016-09-03] MEDS: CARDIZEM CD PO SCH (09:28)
[2016-09-03] MEDS: DIFLUCAN PO SCH (09:28)
[2016-09-03] MEDS: LOVENOX SUBQ SCH (09:28)
[2016-09-03] MEDS: KLOR-CON PO SCH (09:29)
[2016-09-03] MEDS: MAG-OX PO SCH (09:29)
[2016-09-03] MEDS: MUCINEX PO SCH ×2 (09:29→20:27)
[2016-09-03] MEDS: SINGULAIR PO SCH (09:29)
[2016-09-03] MEDS: ZYLOPRIM PO SCH (09:29)
--- NOTE | 2016-09-03 13:33 | Diag Imaging Result Document ---
PROCEDURE NAME: CHEST-PORTABLE - 09/03/2016 SINGLE FRONTAL RADIOGRAPH OF THE CHEST: COMPARISON: 09/01/2016. FINDINGS: There is stable blunting of the left costophrenic angle and COPD changes. No new consolidation is identified. Cardiac silhouette is stable. IMPRESSION: Stable chest.
--- NOTE | 2016-09-03 14:52 | PROGRESS NOTE ---
DATE: 09/03/2016 SUBJECTIVE: This patient states that she is feeling better. She is still complaining of mild shortness of breath and coughing. She denies nausea, vomiting, diarrhea, or constipation. OBJECTIVE: Vital Signs: Temperature 98.6 degrees, pulse 107, respiratory rate 27, blood pressure 138/61, O2 saturation 89 on 4 L of nasal cannula. HEENT: Head normocephalic. No trauma. PERRLA. Neck: Supple. No JVD. No carotid bruits, anterior bilateral cervical lymphadenopathy noted. Mildly tender to palpation. Cardiovascular: RRR. Tachycardic. No murmurs. Chest: Decreased breath sounds globally. Bilateral diffuse rhonchi and bilateral expiatory wheezing. She is not using accessory muscles or having work of breathing today. Abdomen: Soft, nontender, nondistended. No hepatosplenomegaly. Extremities: No clubbing, cyanosis, or edema. Peripheral pulses are present in both legs. Neurologic: The patient is alert and oriented x3. No focal neurological deficits. LABORATORY: WBC 14, hemoglobin 14.4, hematocrit 44.1, platelets 257,000. Sodium 139, potassium 3.8, chloride 96, bicarbonate 27, BUN 46, creatinine 1.3. Glucose 137, calcium 8.9. ASSESSMENT AND PLAN: 1. Chronic obstructive pulmonary disease exacerbation. I will continue with be breathing treatment. She is already on steroids. Xopenex every 4 hours. Mucinex and Mucomyst 20%. Pulmonary Department is following this patient as well. 2. [id number] systolic heart failure exacerbation. She is feeling better. I will decrease the dose of Lasix 40 IV q.12 hours to 40 IV daily, and I will monitor. 3. Cervical lymphadenopathy. We will continue to monitor. Hematology/Oncology is on board. Dr. Bender has been her physician as an outpatient. 4. Hypertension. Continue with the same medications. 5. Acute kidney injury. The creatinine increased from 0.9 to 1.3. I will decrease the dose of Lasix, and I will monitor the creatinine daily. 6. Hyperlipidemia. Continue with the same management. CRITICAL CARE TIME: 35 minutes.
[2016-09-03] MEDS: ROCEPHIN 1 GM/NS 50 ML IV SCH (18:20)
[2016-09-04] MEDS: XOPENEX NEB INH SCH ×7 (03:28→23:10)
[2016-09-04] MEDS: ATROVENT NEB INH SCH ×7 (03:28→23:10)
[2016-09-04 05:36] LABS: BASO% 0.1 % (0.0-0.8); HEMOGLOBIN 13.7 g/dL (12.0-16.0); IMM GRAN# 0.04 X1000 (0.0-0.04); IMM GRAN% 0.3 % (0.0-0.5); LYMPH# 0.67 X1000 (1.2-3.4); LYMPH% 5.1 % (20.5-51.1); MANUAL DIFF NEEDED? YES; MCH 30.2 PG (27-31); MCHC 32.6 g/dL (33-37); MCV 92.7 FL (81-99); MONO# 0.26 X1000 (0.11-0.59); MPV 9.4 FL (7.4-10.4); NEUT% 92.5 % (42.2-75.2); PLT 228 X1000 (130-400); RBC 4.53 XMIL (4.2-5.4)
[2016-09-04] MEDS: SOLU-MEDROL IV SCH ×2 (05:47→17:55)
[2016-09-04] MEDS: PROTONIX PO SCH ×2 (05:55→06:04)
[2016-09-04 07:02] LABS: CALCIUM 8.6 mg/dL (8.8-10.2); POTASSIUM 3.7 mmol/L (3.5-5.1)
[2016-09-04] MEDS: MUCOMYST 20% INH SCH ×2 (07:36→19:52)
--- NOTE | 2016-09-04 08:25 | PROGRESS NOTE ---
DATE: 09/04/2016 CHIEF COMPLAINT: Shortness of breath. SUBJECTIVE: Ms. Hutson is feeling much better. She is breathing more comfortably. Her heart rate has dropped to a more normal range. OBJECTIVE: Vital signs: Blood pressure today is 138/49, temperature 97.5, pulse 68, and respirations 24. General: She is awake, alert, oriented, and in no distress. HEENT: Unremarkable. Chest: Bilateral rhonchi, wheezes, and rales. Cardiovascular: Heart sounds are regular and rhythmic. No gallop or murmur. Gastrointestinal: The abdomen is nontender. No masses or hepatomegaly. Extremities: The extremities show fairly good pulses. No edema. Neurological: She moves all extremities. IMPRESSION: 1. Patient who presented with increasing dyspnea, probably exacerbation of chronic obstructive pulmonary disease compounded with chronic systolic heart failure. 2. Abnormal EKG, left bundle branch block which is chronic. She had the appearance of "wide complex tachycardia". However, that was just due to primarily sinus tachycardia. 3. History of hypertension. RECOMMENDATION: At this point in time the patient continues to improve. I would suggest to keep the same regimen as you are doing. She is presently improving. I would be very happy to see her down the road, however, at this point in time the core of her care should be in the hands of the primary service and the corn lab technician. Cardiac-mathews I believe she is stable.
[2016-09-04 08:36] LABS: BANDS 3 % (0-1); LYMPHS 5 % (21-51); MONO 2 % (1-9)
[2016-09-04] MEDS ORDERED: LASIX IV SCH (09:00)
[2016-09-04] MEDS: SINGULAIR PO SCH (09:04)
[2016-09-04] MEDS: MAG-OX PO SCH (09:04)
[2016-09-04] MEDS: KLOR-CON PO SCH (09:05)
[2016-09-04] MEDS: LOVENOX SUBQ SCH (09:05)
[2016-09-04] MEDS: MUCINEX PO SCH ×2 (09:05→21:22)
[2016-09-04] MEDS: CARDIZEM CD PO SCH (09:05)
[2016-09-04] MEDS: DIFLUCAN PO SCH (09:05)
[2016-09-04] MEDS: ZYLOPRIM PO SCH (09:05)
--- NOTE | 2016-09-04 16:30 | PROGRESS NOTE ---
DATE: 09/04/2016 SUBJECTIVE: The patient states that she is feeling better. She is still complaining of mild shortness of breath and coughing. She denies nausea, vomiting, diarrhea, constipation. No fever. No chills. OBJECTIVE: Vital Signs: Temperature 98.2 degrees, pulse 83, respiratory rate 18, blood pressure 150/55, oxygen saturation 93 on 4 L of nasal cannula. HEENT: Head normocephalic. No trauma. PERRLA. Neck: Supple. No JVD. No masses. Central trachea. Cardiovascular: RRR. No murmurs. Chest: Decreased breath sounds globally, bilateral diffuse rhonchi and expiatory wheezing. She is not using accessory muscles or having work of breathing today. Abdomen: Soft, nontender, nondistended. No hepatosplenomegaly. Extremities: No clubbing, cyanosis, or edema. Neurological Examination: The patient is alert and oriented x3. No focal neurological deficits. LABORATORY: WBC 13.1, hemoglobin 13.7, hematocrit 42, platelets 228,000. Sodium 137, potassium 3.7, chloride 95, bicarbonate 27, BUN 58, creatinine 1.3, glucose 150, calcium 8.6. ASSESSMENT AND PLAN: 1. Chronic obstructive pulmonary disease exacerbation. We will continue with breathing treatments, pulmonary toilet and oxygen. Pulmonary Department is following this patient as well. 2. Acute on chronic systolic heart failure exacerbation. This is basically resolved. I will switch the Lasix IV to p.o., she will get 40 p.o. daily and we will monitor. 3. Cervical lymphadenopathy. We will continue to monitor. Hematology/Oncology is on board. Dr. Bender also has seen this patient as an outpatient. 4. Hypertension. Continue with the same medications. 5. Acute kidney injury. The creatinine has been around the same compared with yesterday. BUN increased a little bit. I will continue to monitor the creatinine daily. 6. Hyperlipidemia. Continue with same management. CRITICAL CARE TIME: 30 minutes.
[2016-09-04] MEDS: ROCEPHIN 1 GM/NS 50 ML IV SCH (17:55)
[2016-09-05] MEDS: PROTONIX PO SCH ×3 (05:24→06:01)
[2016-09-05] MEDS: SOLU-MEDROL IV SCH ×2 (05:24→17:21)
[2016-09-05 05:47] LABS: CALCIUM 9.1 mg/dL (8.8-10.2); POTASSIUM 3.5 mmol/L (3.5-5.1)
[2016-09-05 05:50] LABS: BASO% 0.1 % (0.0-0.8); HEMATOCRIT 45.8 % (37.0-47.0); HEMOGLOBIN 14.9 g/dL (12.0-16.0); IMM GRAN# 0.05 X1000 (0.0-0.04); IMM GRAN% 0.4 % (0.0-0.5); LYMPH# 0.77 X1000 (1.2-3.4); LYMPH% 6.4 % (20.5-51.1); MANUAL DIFF NEEDED? YES; MCH 30.3 PG (27-31); MCHC 32.5 g/dL (33-37); MCV 93.3 FL (81-99); MONO% 3.3 % (1.7-9.3); MPV 9.4 FL (7.4-10.4); NEUT% 89.8 % (42.2-75.2); PLT 252 X1000 (130-400); RBC 4.91 XMIL (4.2-5.4)
[2016-09-05] MEDS: MUCOMYST 20% INH SCH ×2 (07:33→19:20)
[2016-09-05] MEDS: XOPENEX NEB INH SCH ×5 (07:33→23:46)
[2016-09-05] MEDS: ATROVENT NEB INH SCH ×5 (07:33→23:46)
[2016-09-05 08:10] LABS: LYMPHS 5 % (21-51); MONO 1 % (1-9)
[2016-09-05] MEDS: LASIX PO SCH (08:10)
[2016-09-05] MEDS: MAG-OX PO SCH (08:10)
[2016-09-05] MEDS: SINGULAIR PO SCH (08:10)
[2016-09-05] MEDS: LOVENOX SUBQ SCH (08:10)
[2016-09-05] MEDS: KLOR-CON PO SCH (08:10)
[2016-09-05] MEDS: CARDIZEM CD PO SCH (08:10)
[2016-09-05] MEDS: MUCINEX PO SCH ×2 (08:10→20:15)
[2016-09-05] MEDS: DIFLUCAN PO SCH (08:10)
[2016-09-05] MEDS ORDERED: FLONASE NAS ONE (08:28)
--- NOTE | 2016-09-05 11:31 | PROGRESS NOTE ---
DATE: 09/05/2016 SUBJECTIVE: This patient states that she is feeling a little bit better. She is still complaining about shortness of breath and coughing. She denies nausea, vomiting, diarrhea, constipation. She is complaining also about fatigue. No fever, no chills. OBJECTIVE: Vital Signs: Temperature 97.9 degrees, pulse 78, respiratory rate 20, blood pressure 148/64, oxygen saturation 95% on 4 liters of nasal cannula. HEENT: Head normocephalic. No trauma. PERRLA. Neck: Supple. No JVD. No masses. Central trachea. Cardiovascular: RRR. No murmurs. Chest: Decreased breath sounds globally, bilateral diffuse rhonchi and expiratory wheezing. She is not using accessory muscles or having work of breathing today. Abdomen: Soft, nontender, nondistended. No hepatosplenomegaly. Extremities: No clubbing, cyanosis, or edema. Neurological: The patient is alert and oriented x3. No focal neurological deficits. LABORATORY: WBC 11.9, hemoglobin 14.9, hematocrit 45.8, platelets 252,000. Sodium 140, potassium 3.5, chloride 98, bicarbonate 31, BUN 47, creatinine 1.2, glucose 39, calcium 9.1. ASSESSMENT AND PLAN: 1. Chronic obstructive pulmonary disease exacerbation. We will continue with breathing treatment, pulmonary toilet and oxygen. Pulmonary Department is following this patient as well. This patient is getting better. 2. Acute on chronic systolic heart failure exacerbation. This is basically resolved. I will continue with p.o. Lasix, and I will monitor. 3. Cervical lymphadenopathy. We will continue to monitor. This is getting better. The Hematology/Oncology department evaluated this patient, and they will continue following this patient up as an outpatient. 4. 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 This patient is on IVIG every month. Hematology/Oncology is taking care of this patient. 5. Hypertension. Continue with the same medication. This is stable. 6. Acute kidney injury. The creatinine and the BUN are getting a little bit better. Continue to monitor daily. 7. Hyperlipidemia. Continue with the same management. CRITICAL CARE TIME: The critical care time was 35 minutes.
[2016-09-05] MEDS: ROCEPHIN 1 GM/NS 50 ML IV SCH (18:30)
[2016-09-06] MEDS: ATROVENT NEB INH SCH ×7 (02:47→23:04)
[2016-09-06] MEDS: XOPENEX NEB INH SCH ×7 (02:48→23:04)
[2016-09-06 05:52] LABS: BASO% 0.2 % (0.0-0.8); HEMATOCRIT 43.8 % (37.0-47.0); IMM GRAN# 0.06 X1000 (0.0-0.04); IMM GRAN% 0.5 % (0.0-0.5); LYMPH# 0.54 X1000 (1.2-3.4); LYMPH% 4.8 % (20.5-51.1); MANUAL DIFF NEEDED? YES; MCH 30.1 PG (27-31); MCV 94.2 FL (81-99); MONO# 0.35 X1000 (0.11-0.59); MONO% 3.1 % (1.7-9.3); MPV 9.4 FL (7.4-10.4); NEUT% 91.4 % (42.2-75.2); PLT 233 X1000 (130-400); RBC 4.65 XMIL (4.2-5.4)
[2016-09-06] MEDS: SOLU-MEDROL IV SCH ×2 (06:12→17:52)
[2016-09-06] MEDS: PROTONIX PO SCH (06:12)
[2016-09-06 06:14] LABS: CALCIUM 8.8 mg/dL (8.8-10.2); POTASSIUM 4.3 mmol/L (3.5-5.1)
[2016-09-06 07:21] LABS: BANDS 2 % (0-1); HYPOCHROM 1+; LYMPHS 8 % (21-51); MONO 4 % (1-9)
[2016-09-06] MEDS: MUCOMYST 20% INH SCH ×2 (07:36→19:28)
[2016-09-06] MEDS: MUCINEX PO SCH ×2 (08:37→20:38)
[2016-09-06] MEDS: SINGULAIR PO SCH (08:37)
[2016-09-06] MEDS: KLOR-CON PO SCH (08:37)
[2016-09-06] MEDS: MAG-OX PO SCH (08:37)
[2016-09-06] MEDS: CARDIZEM CD PO SCH (08:38)
[2016-09-06] MEDS: DIFLUCAN PO SCH (08:38)
[2016-09-06] MEDS: LASIX PO SCH (08:38)
[2016-09-06] MEDS: LOVENOX SUBQ SCH (08:38)
--- NOTE | 2016-09-06 09:28 | PROGRESS NOTE ---
DATE: 09/06/2016 CHIEF COMPLAINT: Shortness of breath, cough, tachycardia. SUBJECTIVE: Mrs. Hutson is generally doing better. She is breathing better. She is still coughing some but she does not sound as congested. Telemetry shows sinus rhythm. She is not having any pains. She is eating better. OBJECTIVE: Vital signs: Temperature 97.8, pulse 95, blood pressure 156/64, respirations 18. General: Awake, alert, oriented x3. Skin: No rashes. HEENT: Unremarkable. Chest: Bilateral rhonchi, no wheezes. Cardiac: Heart sounds regular and rhythmic, no gallop or murmur. Abdomen: Nontender. Extremities: No edema. IMAGING: Chest x-ray done on September 03 showed stable blunting of the left costophrenic angle. BLOOD WORK: ProBNP was checked yesterday and is coming down to 932. Her sodium is 138, potassium 4.3, BUN 38, creatinine 1.0. Those are improving. Her CBC: White count 11,250, hemoglobin 14 g. IMPRESSION: 1. Patient with exacerbation of chronic obstructive pulmonary disease. 2. Chronic systolic heart failure. 3. Abnormal EKG. 4. Dyspnea secondary to all of the above. RECOMMENDATION: We will continue present medical therapy. The patient is improving. I would like to continue the present program at least over the weekend, and if she is definitely better by Friday, maybe she can go home.
--- NOTE | 2016-09-06 13:41 | PROGRESS NOTE ---
DATE: 09/06/2016 SUBJECTIVE: This patient states that she is feeling better. She is still complaining about shortness of breath and coughing. She denies nausea, vomiting, diarrhea, constipation. I will ask for physical therapy to evaluate this patient. No fever, no chills. OBJECTIVE: Vital Signs: Temperature 97.9 degrees, pulse 95, respiratory rate 18, blood pressure 156/74, O2 saturation 9 on 4 L of nasal cannula. HEENT: Head normocephalic. No trauma. PERRLA. Neck: Supple. No JVD. No masses. Central trachea. Cardiovascular: RRR. No murmurs. No gallops. No rubs. Chest: Decreased breath sounds globally. Bilateral diffuse rhonchi and expiatory wheezing. She is not using accessory muscles or having work of breathing today. Abdomen: Soft, nontender, nondistended. No hepatosplenomegaly. Extremities: No clubbing, cyanosis, or edema. Neurological: The patient is alert and oriented x3. No focal neurological deficits. LABORATORY: WBC 11.2, hemoglobin 14, hematocrit 43.8, platelets 233,000. Sodium 138, potassium 4.3, chloride 97, bicarbonate 29, BUN 38, creatinine 1, glucose 129, calcium 8.8. ASSESSMENT AND PLAN: 1. Chronic obstructive pulmonary disease exacerbation. Will continue with breathing treatment, pulmonary toilet and oxygen, also she is on steroids. Pulmonary department is following this patient as well. This patient is getting better. 2. Acute on chronic systolic heart failure exacerbation. This is basically resolved. I will continue with p.o. Lasix and I will monitor. 3. Cervical lymphadenopathy. Will continue to monitor. This is getting better. The Hematology- Oncology Department evaluated this patient. They will continue following this patient as an outpatient. 4. 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 This patient is on intravenous immunoglobulin every month. Hematology-Oncology is taking care of this patient. Probably this patient will get a new dose/infusion of IVIG next . 5. Hypertension. Continue with the same medication. This is stable. 6. Acute kidney injury stable. Continue to monitor. 7. Hyperlipidemia. Continue with the same management.
[2016-09-06] MEDS: ROCEPHIN 1 GM/NS 50 ML IV SCH (17:52)
[2016-09-06] MEDS: FLONASE NAS SCH (20:38)
[2016-09-07] MEDS: XOPENEX NEB INH SCH ×6 (02:38→23:29)
[2016-09-07] MEDS: ATROVENT NEB INH SCH ×6 (02:38→23:29)
[2016-09-07 05:36] LABS: BASO% 0.1 % (0.0-0.8); HEMATOCRIT 41.2 % (37.0-47.0); HEMOGLOBIN 12.9 g/dL (12.0-16.0); IMM GRAN# 0.07 X1000 (0.0-0.04); IMM GRAN% 0.7 % (0.0-0.5); LYMPH% 7.1 % (20.5-51.1); MANUAL DIFF NEEDED? YES; MCH 29.5 PG (27-31); MCHC 31.3 g/dL (33-37); MCV 94.3 FL (81-99); MONO# 0.41 X1000 (0.11-0.59); MONO% 4.2 % (1.7-9.3); MPV 9.4 FL (7.4-10.4); NEUT% 87.9 % (42.2-75.2); PLT 215 X1000 (130-400); RBC 4.37 XMIL (4.2-5.4)
[2016-09-07 05:50] LABS: CALCIUM 8.6 mg/dL (8.8-10.2); POTASSIUM 4.3 mmol/L (3.5-5.1)
[2016-09-07] MEDS: SOLU-MEDROL IV SCH ×2 (05:56→18:24)
[2016-09-07] MEDS: PROTONIX PO SCH ×2 (05:56→06:00)
[2016-09-07 05:57] LABS: HEMOGLOBIN A1C 5.4 % (4.8-6.0)
[2016-09-07 07:15] LABS: EOS 1 % (1-10); LYMPHS 10 % (21-51); MONO 2 % (1-9)
[2016-09-07] MEDS: MUCOMYST 20% INH SCH ×2 (07:58→20:09)
[2016-09-07] MEDS: DIFLUCAN PO SCH (08:37)
[2016-09-07] MEDS: FLONASE NAS SCH ×2 (08:37→22:07)
[2016-09-07] MEDS: CARDIZEM CD PO SCH (08:37)
[2016-09-07] MEDS: SINGULAIR PO SCH (08:37)
[2016-09-07] MEDS: KLOR-CON PO SCH (08:37)
[2016-09-07] MEDS: LOVENOX SUBQ SCH (08:37)
[2016-09-07] MEDS: LASIX PO SCH (08:37)
[2016-09-07] MEDS: MUCINEX PO SCH ×2 (08:37→22:07)
[2016-09-07] MEDS: MAG-OX PO SCH (08:37)
--- NOTE | 2016-09-07 11:28 | PROGRESS NOTE ---
DATE: 09/07/2016 SUBJECTIVE: This patient states that she is feeling better. She is still complaining of mild shortness of breath and cough but compared with yesterday she feels better. She denies nausea, vomiting, diarrhea, constipation. Physical therapy is on board. No fever. No chills. I will transfer this patient to the medical floor only if we can find a private room, because of her problems with the immunological problems. OBJECTIVE: Vital Signs: Temperature 97.5 degrees, pulse 77, respiratory rate 18, blood pressure 146/70, O2 saturation 97% on 4 L of nasal cannula. HEENT: Head normocephalic. No trauma. PERRLA. Neck: Supple. No JVD. No masses. Central trachea. Cardiovascular: RRR. No murmurs. No gallops. No rubs. Chest: Decreased breath sounds globally. Bilateral diffuse rhonchi and the bilateral scattered expiratory wheezing. She is not using accessory muscles or having work of breathing. Abdomen: Abdomen soft, nontender, nondistended. No hepatosplenomegaly. Extremities: No clubbing, no edema. No cyanosis. Neurological: The patient is alert and oriented x3. No focal neurological deficits. LABORATORY: WBC 9.8, hemoglobin 12.9, hematocrit 41.2, platelet 215,000. Sodium 139, potassium 4.3, chloride 101, bicarbonate 28, BUN 39, creatinine 1, glucose 153. Hemoglobin A1c 5.4. Calcium 8.6. ASSESSMENT AND PLAN: 1. Chronic obstructive pulmonary disease exacerbation. We will continue with breathing treatment, pulmonary toilet and oxygen. This patient is still on steroids. I will continue with the same dose for now. 2. Acute on chronic systolic heart failure exacerbation. This is basically resolved. We will continue with p.o. Lasix and we will monitor. Cardiology Department is following this patient as well. 3. Cervical lymphadenopathy. Will continue to monitor. This is getting better Hematology Oncology will follow this patient as an outpatient. 4. 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 This patient is on the IVIG every month. Hematology Oncology is taking care of this patient. 5. Hypertension. Continue with the same management. 6. Acute kidney injury. Resolved. Continue with monitoring. 7. Hyperlipidemia. Continue with the same management. Overall, this patient is doing much better. I will transfer this patient to the regular floor only if we can find a private room. We will continue with the same management for now. Pulmonary Department and Cardiology Department are following this patient. I believe that the beginning of the next week she will be able to be discharged.
--- NOTE | 2016-09-07 13:07 | PROGRESS NOTE ---
DATE: 09/07/2016 SUBJECTIVE: Ms. Hutson reports she feels better today. She has been moved from [facility] to [address] [place] [address]. PHYSICAL EXAMINATION: Vital signs: She is afebrile, heart rate of 70s to 80s. Blood pressure 160/59. Her intakes and outputs have been somewhat negative over the course of the hospitalization with improvement in her kidney function. General: No acute distress. Cardiovascular: She is regular rate and rhythm. She has no obvious murmurs. She has trace bilateral lower extremity edema and warm and well-perfused lower extremities. Chest: Her chest exam has some mild coarsening of her breath sounds with some very minimal expiratory wheezes. No increased work of breathing. Abdomen: Soft, nontender, nondistended. No obvious organomegaly. Skin: Warm and dry throughout. PERTINENT DATA: Her white count is 9.8. Hematocrit is 41. Platelet count is 215. Sodium 139. Potassium is 4.3. BUN 39, creatinine 1. ASSESSMENT: 1. Chronic obstructive pulmonary disease exacerbation. 2. Heart failure. PLAN: She will need resumption of her losartan and Aldactone when she goes home. These medicines were held secondary to her mild renal insufficiency on presentation. She does seem to be progressing overall. Hopefully she can be discharged in the next 24 to 48 hours.
[2016-09-07] MEDS: ROCEPHIN 1 GM/NS 50 ML IV SCH (18:24)
[2016-09-08] MEDS: ATROVENT NEB INH SCH ×6 (03:56→22:55)
[2016-09-08] MEDS: XOPENEX NEB INH SCH ×6 (03:57→22:55)
[2016-09-08] MEDS: SOLU-MEDROL IV SCH ×2 (05:03→19:00)
[2016-09-08] MEDS: PROTONIX PO SCH (06:04)
[2016-09-08 07:09] LABS: CALCIUM 8.7 mg/dL (8.8-10.2); POTASSIUM 3.9 mmol/L (3.5-5.1)
[2016-09-08 07:11] LABS: BASO% 0.1 % (0.0-0.8); IMM GRAN# 0.12 X1000 (0.0-0.04); LYMPH% 5.7 % (20.5-51.1); MANUAL DIFF NEEDED? YES; MCH 29.7 PG (27-31); MCHC 31.8 g/dL (33-37); MCV 93.4 FL (81-99); MONO# 0.33 X1000 (0.11-0.59); MONO% 2.7 % (1.7-9.3); MPV 9.5 FL (7.4-10.4); NEUT% 90.5 % (42.2-75.2); PLT 244 X1000 (130-400); RBC 4.71 XMIL (4.2-5.4)
[2016-09-08] MEDS: MUCOMYST 20% INH SCH ×2 (07:26→19:57)
[2016-09-08 07:56] LABS: BANDS 6 % (0-1); LYMPHS 8 % (21-51); MONO 4 % (1-9)
[2016-09-08] MEDS: FLONASE NAS SCH (11:10)
[2016-09-08] MEDS: LASIX PO SCH (11:10)
[2016-09-08] MEDS: KLOR-CON PO SCH (11:10)
[2016-09-08] MEDS: MUCINEX PO SCH ×2 (11:10→21:23)
[2016-09-08] MEDS: MAG-OX PO SCH (11:10)
[2016-09-08] MEDS: DIFLUCAN PO SCH (11:10)
[2016-09-08] MEDS: LOVENOX SUBQ SCH (11:11)
[2016-09-08] MEDS: CARDIZEM CD PO SCH (11:11)
[2016-09-08] MEDS: SINGULAIR PO SCH (11:12)
--- NOTE | 2016-09-08 15:59 | PROGRESS NOTE ---
DATE: 09/08/2016 SUBJECTIVE: This patient states that she is feeling better. She is not complaining today of shortness of breath. She is still having mild cough. She denies nausea, vomiting, diarrhea, constipation. Physical therapy is on board. No fever, no chills. This patient is on the medical floor with telemetry. OBJECTIVE: Vital Signs: Temperature 97.6 degrees, pulse 85, respiratory rate 20, blood pressure 147/65, O2 saturation 97 on 4 L of nasal cannula. HEENT: Head normocephalic. No trauma. PERRLA. Neck: Supple. No JVD. Cervical lymphadenopathy. Central trachea. Cardiovascular: RRR. No murmurs. No gallops. No rubs. Chest: Decreased breath sounds globally. Bilateral diffuse rhonchi. She is not using accessory muscles or having work of breathing. Abdomen: Soft, nontender, nondistended. No hepatosplenomegaly. Extremities: No clubbing, no edema. No cyanosis. Neurological: The patient is alert and oriented x3. No focal neurological deficits. LABORATORY: WBC 12.3, hemoglobin 14, hematocrit 44, platelets 244,000. Sodium 139, potassium 3.9, chloride 100, bicarbonate 29, BUN 39, creatinine 1.1, glucose 175, calcium 8.7. ASSESSMENT AND PLAN: 1. Chronic obstructive pulmonary disease exacerbation. Will continue with the breathing treatment, pulmonary toilet and oxygen. This patient is still on steroids. I will continue with the same dose for now and pulmonary department is following this patient. Will monitor. 2. Acute on chronic systolic heart failure exacerbation. This is basically resolved. Will continue with Lasix and as per Cardiology upon discharge she can restart her losartan and Aldactone. 3. Cervical lymphadenopathy. Will continue to monitor. This is getting better. Hematology/oncology will follow this patient as an outpatient. 4. 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 This patient is on intravenous immunoglobulin every month, she is scheduled to get another IVIG infusion this Friday. Hematology/oncology is on board. 5. Hypertension .continue with the same management. 6. Acute kidney injury. Resolved. 7. Hyperlipidemia. Continue with the same treatment. Overall this patient is doing much better. She will continue with telemetry. Probably this patient will be discharged home tomorrow if everything is okay. I will talk to pulmonary department to see when they want to see this patient again as an outpatient and final treatment recommendations.
[2016-09-08] MEDS: ROCEPHIN 1 GM/NS 50 ML IV SCH (19:00)
[2016-09-09] MEDS: ATROVENT NEB INH SCH ×3 (03:27→11:09)
[2016-09-09] MEDS: XOPENEX NEB INH SCH ×3 (03:28→11:10)
[2016-09-09] MEDS: SOLU-MEDROL IV SCH (05:40)
[2016-09-09 07:05] LABS: CALCIUM 8.9 mg/dL (8.8-10.2)
[2016-09-09 07:07] LABS: BASO% 0.1 % (0.0-0.8); HEMATOCRIT 43.7 % (37.0-47.0); IMM GRAN# 0.13 X1000 (0.0-0.04); IMM GRAN% 1.1 % (0.0-0.5); LYMPH# 0.76 X1000 (1.2-3.4); LYMPH% 6.3 % (20.5-51.1); MANUAL DIFF NEEDED? YES; MCH 29.9 PG (27-31); MCV 93.2 FL (81-99); MONO# 0.43 X1000 (0.11-0.59); MONO% 3.6 % (1.7-9.3); MPV 9.5 FL (7.4-10.4); NEUT% 88.9 % (42.2-75.2); PLT 243 X1000 (130-400); RBC 4.69 XMIL (4.2-5.4)
[2016-09-09 07:37] LABS: BANDS 4 % (0-1); LYMPHS 12 % (21-51); MONO 2 % (1-9)
[2016-09-09] MEDS: KLOR-CON PO SCH (08:00)
[2016-09-09] MEDS: SINGULAIR PO SCH (08:00)
[2016-09-09] MEDS: LASIX PO SCH (08:00)
[2016-09-09] MEDS: MUCINEX PO SCH (08:00)
[2016-09-09] MEDS: CARDIZEM CD PO SCH (08:00)
[2016-09-09] MEDS: MAG-OX PO SCH (08:00)
[2016-09-09] MEDS: FLONASE NAS SCH (08:00)
[2016-09-09] MEDS: PROTONIX PO SCH (08:00)
[2016-09-09] MEDS: LOVENOX SUBQ SCH (08:00)
[2016-09-09] MEDS: DIFLUCAN PO SCH (08:00)
[2016-09-09] MEDS: MUCOMYST 20% INH SCH (08:08)
[2016-09-09 11:46] VITALS: BP 160/66
[2016-09-09] MEDS ORDERED: MEDROL PO SCH (13:00)
[2016-09-09] MEDS ORDERED: MEDROL DOSEPAK PO SCH (13:00)
[2016-09-09] MEDS ORDERED: DOXYCYCLINE PO SCH (17:00)
[2016-09-09] MEDS ORDERED: CIPRO PO SCH (21:00)
[2016-09-10] MEDS ORDERED: MEDROL PO SCH ×2 (08:00→12:00)
--- NOTE | 2016-09-10 11:58 | DISCHARGE SUMMARY ---
ADMISSION DATE: 09/01/2016 DISCHARGE DATE: 09/09/2016 CONSULTATIONS: Dr. Grier with Cardiology, Dr. Bender with Oncology, Dr. Gumaro Chapman with Pulmonology. PERTINENT PROCEDURES: Pulmonary arteriogram showed no evidence of PE, mild infiltrate or atelectasis at the bilateral lung bases, no consolidation, emphysema. Neck CT showed no visible acute processes, no evidence of cervical adenopathy. Echocardiogram showed an EF of 30% to 35%. DISCHARGE DIAGNOSES: 1. Chronic obstructive pulmonary disease exacerbation, resolved. 2. Acute on chronic systolic heart failure exacerbation, resolved. 3. Cervical lymphadenopathy. Continues to improve. Followed by Dr. Bender. 4. Common variable immunodeficiency hypogammaglobulinemia, recurrent infection, on intravenous immunoglobulin every month. Again, she is due this Friday for another dose, followed by Hematology/Oncology. 5. Hypertension. Continue with home management. 6. Acute kidney injury, resolved. 7. Hyperlipidemia. Continue with same management. HOSPITAL COURSE: Briefly, Ms. Hutson is an 81-year-old female with a past medical history of severe COPD, systolic congestive heart failure, and IgG deficiency, who was over the last few weeks starting in the beginning of August having respiratory issues. She was placed on azithromycin twice, doxycycline, and prednisone but her symptoms continued. She had a productive cough with clear thick phlegm, runny nose, and sore throat. She did have anterior cervical lymphadenopathy that had developed 24 hours prior to her admission which was tender to palpation. She is on home O2 at 2L during the day and 3L at night. She got to where she was requiring 3L in the day and at night, and had a drop in her O2 saturation. Her EKG showed wide complex tachycardia at 132 with a left bundle branch. She was treated with Levaquin for her COPD exacerbation, but changed to Rocephin, given her prolonged QTc. The patient did have crackles and expiratory wheezes on her physical exam. She did receive 60 of Lasix. Her chest x-ray reported stable COPD changes and stable blunting of the left costophrenic angle but no new infiltrates. Patient was admitted to [facility] for close monitoring and her somewhat tachycardic rate. She was continued on her oral Cardizem with a Cardiology consult as well as Pulmonary and Hematology. She was started on Xopenex and Atrovent, given her fast heart rate, as well as Mucomyst, budesonide, and aggressive pulmonary toilet as well as IV antibiotic coverage. She underwent a new echocardiogram that did show an EF of 30% to 35% with global hypokinesis. Dr. Grier agreed with mild diuresis in treatment of her COPD exacerbation. The patient did have an acute kidney injury, so her losartan as well as Aldactone were initially held. Per Cardiology, these will need to be resumed at the time of her discharge since her acute kidney injury has resolved. The patient has progressed well overall. She was watched over the weekend with her current management. Dr. Arreola feels that the patient is appropriate for discharge home today. She will be discharged back home. The patient will follow up with Dr. Chapman on 09/18/[address] Grier on 09/25/[address] Bender on Friday for her IgG treatment. She can follow up with her primary care physician, Dr. Eliazar Barbosa, in 7-10 days. The patient can return to the ED for any worsening of symptoms. DISCHARGE TIME: Greater than 30 minutes. Dictated by VIVIANE Manuel for Nabil Salgado MD
[2016-09-11] MEDS ORDERED: MEDROL PO SCH (08:00)
[2016-09-12] MEDS ORDERED: MEDROL PO SCH (08:00)
[2016-09-13] MEDS ORDERED: MEDROL PO SCH (08:00)
[2016-09-14] MEDS ORDERED: MEDROL PO SCH (08:00)
== END 2016-09-09 14:38 | disposition home or self-care (01) | DRG 291 ==
LOC: ED 12:25 → 3S 17:27 → DIRADM 09-04 12:55 → 3S 09-04 13:03 → 3N 09-07 11:27
PROVIDERS: ATTEND Internal Medicine
DX: I11.0 Hypertensive heart disease with heart failure (principal); J96.21 Acute and chronic respiratory failure with hypoxia; N17.9 Acute kidney failure, unspecified; Z94.84 Stem cells transplant status; D80.3 Selective deficiency of immunoglobulin G [IgG] subclasses; J44.1 Chronic obstructive pulmonary disease with (acute) exacerbation; I50.23 Acute on chronic systolic (congestive) heart failure; Z99.81 Dependence on supplemental oxygen; D75.1 Secondary polycythemia; J45.909 Unspecified asthma, uncomplicated; E78.5 Hyperlipidemia, unspecified; M19.90 Unspecified osteoarthritis, unspecified site; M54.16 Radiculopathy, lumbar region; Z87.891 Personal history of nicotine dependence; I44.7 Left bundle-branch block, unspecified; K21.9 Gastro-esophageal reflux disease without esophagitis; Z79.1 Long term (current) use of non-steroidal anti-inflammatories (NSAID); Z79.899 Other long term (current) drug therapy; R00.0 Tachycardia, unspecified; R59.0 Localized enlarged lymph nodes; I42.0 Dilated cardiomyopathy
CPT/HCPCS: 70491; 71010; 71020; 71275; 80048; 80053; 81001; 82550; 82784; 82805; 83036; 83735; 83880; 84443; 84484; 85025; 85379; 85610; 85730; 87040; 87070; 87081; 87107; 87205; 87430; 87486; 87498; 87541; 87581; 87640; 87641; 87651; 87798; 87804; 89220; 93005; 93010; 93306; 94640; 94761; 94799; 96365; 96366; 96375; J0696; J1650; J1940; J2920; J2930; J7509; Q9967; 97110-GP; 97116-GP